=== PATIENT | male | born 1980 | race Caucasian/White ===

== ENCOUNTER 2021-08-21 16:57 | Emergency (ER) | payer BC, SELFPAY ==
--- NOTE | ~2021-08-21 | XR_ITS ---
EXAMINATION: XR ankle LT min 3V DATE: 08/21/2021 17:16 INDICATION: Left ankle injury and swelling. TECHNIQUE: 4 views of left ankle were obtained. COMPARISON: None. FINDINGS: Bone alignment is normal. There is an avulsion fracture of anteroinferior aspect of distal fibula. Joint spaces are normal. There is ankle soft tissue swelling. IMPRESSION: 1. Chip avulsion fracture of anteroinferior aspect of distal fibula at the attachment of anterior jimena ofibular ligament. Reviewed, dictated and finalized at location A. IMPRESSION: 1. Chip avulsion fracture of anteroinferior aspect of distal fibula at the [place] chment of anterior talofibular ligament.
[2021-08-21 17:01] VITALS: BP 133/94; PULSE 92; RESP 14; TEMP 36.6; O2SAT 99
--- NOTE | 2021-08-21 18:16 | ED.LOWEXIN ---
HPI - Extremity Injury (Lower) General Chief Complaint: Extremity Injury, Lower Stated Complaint: left ankle pain Time Seen by Provider: 08/21/21 17:53 Source: patient Mode of arrival: ambulatory Limitations: no limitations History of Present Illness HPI Narrative: Patient is a 41-year-old male who presents the ED with complaints of lateral left ankle pain. Patient reports he was getting out of his truck approximately 2 hours ago when he stepped down onto his L foot wrong, rolling it in an inversion manner. He states he then fell and all of his weight came down onto his left ankle. He denies any other injury, head injury, loss of consciousness. He does report he heard a snap in his ankle when he fell. He complains of pain and swelling to his left lateral ankle, denies any left foot or knee pain. No numbness, tingling, weakness. He has not attempted to walk since the injury, but is able to stand on it currently in the ED room. Related Data Allergies Allergy/AdvReac Type Severity Reaction Status Date / Time No Known Allergies Allergy Verified 08/21/21 17:58 Review of Systems Review of Systems: CONSTITUTIONAL: Denies fever, chills, or sweats. MUSCULOSKELETAL: Reports left lateral ankle pain and swelling. Denies left foot or knee pain, back pain or myalgia. NEUROLOGIC: Denies HI, LOC, numbness, tingling, or weakness. All systems reviewed & are unremarkable except as noted in HPI and below PMFSH Past Medical History Medical History No pertinent past medical history Surgical History Surgical History No pertinent past surgical history Social History Social History Smoking status: Never smoker Alcohol intake: current Exam Narrative: GENERAL: Well appearing, well-nourished, non-toxic, in no acute distress. HEAD: Normocephalic, atraumatic. EYES: EOMI, conjunctivae clear bilaterally. NECK: Supple. Normal ROM. RESPIRATORY: Airway patent, respirations nonlabored. CARDIOVASCULAR: Regular rate and rhythm without murmurs, rubs, or gallops. DP and PT pulses 2+ and equal bilaterally. MUSCULOSKELETAL: Moves all extremities. Sensation intact to L foot/toes. Diffuse swelling to left lateral malleoli. Tenderness to palpation to posterior and inferior tips of left distal fibula. No tenderness to palpation of left metatarsals or proximal L lower leg/knee. SKIN: Warm, dry, normal color. No rashes. NEURO: A&O X3. Speech clear. Cranial nerves II-XII grossly intact. No ataxic movements. PSYCHIATRIC: Appropriate mood and affect. Normal interaction. Course Vital Signs Vital signs: Vital Signs Temperature 97.9 F 08/21/21 17:01 Pulse Rate 92 08/21/21 17:01 Respiratory Rate 14 08/21/21 17:01 Blood Pressure 133/94 H 08/21/21 17:01 Pulse Oximetry 99 08/21/21 17:01 Temperature 97.9 F 08/21/21 17:01 Pulse Rate 92 08/21/21 17:01 Respiratory Rate 14 08/21/21 17:01 Blood Pressure 133/94 H 08/21/21 17:01 Pulse Oximetry 99 08/21/21 17:01 MDM - Extremity Injury (Lower) MDM Narrative Medical decision making narrative: Patient presented to ED with left lateral ankle pain and swelling s/p inversion injury. No signs of neurologic or vascular compromise on physical examination. Compartments are soft without signs of compartment syndrome. X-ray of left ankle showing chip avulsion fracture of anterior-inferior aspect of distal fibula at the attachment of the ATFL. Pain is consistent with exam and injury. No pain in left foot or left knee. Patient advised of x-ray findings and likely ligamentous injury. He was given referral to Ortho and advised to make a follow-up appointment within the next week. He was placed in a posterior short leg splint and given crutches to assist with ambulation. Pain medicine was prescribed. Also recommended rest, ice, and mehdi
== END 2021-08-21 19:19 | disposition home or self-care (01) ==
LOC: ANHED 18:51
PROVIDERS: Emergency Provider Emergency Medicine; PCP Family Medicine
DX: S82.832A Other fracture of upper and lower end of left fibula, initial encounter for closed fracture (principal); X50.9XXA Other and unspecified overexertion or strenuous movements or postures, initial encounter
CPT/HCPCS: 29515; 73610; 99284

== ENCOUNTER 2022-11-27 11:25 | Outpatient (NON) | payer OTHER, SELFPAY | END 2022-11-27 11:26 | disposition home or self-care (01) | LOC: ANHLAB 11-28 11:28 | PROVIDERS: PCP Family Medicine; Visit Provider Nurse Practitioner | DX: C44.519 Basal cell carcinoma of skin of other part of trunk (principal) | CPT/HCPCS: 88305 ==

== ENCOUNTER 2022-12-17 11:53 | Outpatient (NON) | payer OTHER, SELFPAY | END 2022-12-17 11:54 | disposition home or self-care (01) | LOC: ANHLAB 12-19 11:57 | PROVIDERS: PCP Family Medicine; Visit Provider Nurse Practitioner | DX: I78.1 Nevus, non-neoplastic (principal) | CPT/HCPCS: 88305 ==

== ENCOUNTER 2022-12-17 13:53 | Outpatient (NON) | payer OTHER, SELFPAY | END 2022-12-17 13:54 | disposition home or self-care (01) | LOC: ANHLAB 13:54 | PROVIDERS: PCP Family Medicine; Visit Provider Nurse Practitioner | DX: C44.519 Basal cell carcinoma of skin of other part of trunk (principal) | CPT/HCPCS: 88305; 88331 ==